=== PATIENT | female | born 1940 | race Two or more races ===

== ENCOUNTER 2018-02-22 11:05 | Emergency (ER) | payer OTHER ==
[~2018-02-22] VITALS: Ht 154.9 cm; Wt 78.0 kg
[~2018-02-22 11:05] MED LIST: AVAPRO300 MG; CRESTOR20 MG; DIS; EFFEXOR XR75 MG; GLUCOPHAGE XR750 MG; INSULIN SY; LANTUS100 U/ML; LASIX40 MG; LOTRIMIN15 GM; NEURONTIN800 MG; ORPH100T PO; PERCOCET 5/3251 TAB PO; PROTONIX40 M1; SENOKOT8.6 MG; SYNTHROID50 MCG; ZIAC 5-6.25 MG1 TAB; [UNRECOGNIZED DRUG - OTHER]
[2018-02-22] MEDS ORDERED: ATORVASTATIN CA20 MG (11:43)
[2018-02-22] MEDS ORDERED: ZIAC 5-6.25 MG1 EACH (11:44)
[2018-02-22] MEDS ORDERED: DICLOFENAC POTA50 MG PO (15:19)
== END 2018-02-22 15:41 | disposition home or self-care (01) ==
LOC: ER 11:05
DX: S20.222A Contusion of left back wall of thorax, initial encounter (principal); W06.XXXA Fall from bed, initial encounter; Y93.89 Activity, other specified; Y92.013 Bedroom of single-family (private) house as the place of occurrence of the external cause

== ENCOUNTER 2019-01-28 16:13 | Emergency (ER) | payer OTHER ==
[~2019-01-28] VITALS: Ht 154.9 cm; Wt 78.0 kg
[~2019-01-28 16:13] MED LIST changes: +ATORVASTATIN CA20 MG; +DICLOFENAC POTA50 MG PO; +ZIAC 5-6.25 MG1 EACH
== END 2019-01-28 18:48 | disposition home or self-care (01) ==
LOC: ER 16:13
DX: M75.52 Bursitis of left shoulder (principal); J06.9 Acute upper respiratory infection, unspecified

== ENCOUNTER 2019-05-06 13:22 | Emergency (ER) | payer OTHER ==
[~2019-05-06] VITALS: Ht 152.4 cm; Wt 77.1 kg
[2019-05-06] MEDS ORDERED: GABAPENTIN800 MG (13:37)
[2019-05-06] MEDS ORDERED: BISOPROLOL-HCT1 EAC1 (13:37)
[2019-05-06] MEDS ORDERED: METFORMIN HCL1000 MG (13:38)
[2019-05-06] MEDS ORDERED: ATACAND32 MG (13:39)
[2019-05-06] MEDS ORDERED: BISOPROLOL FUMAR5 MG (13:40)
[2019-05-06] MEDS ORDERED: FUROSEMIDE40 MG (13:40)
[2019-05-06] MEDS ORDERED: LANTUS SOL100 UNIT/1 (13:41)
[2019-05-06] MEDS ORDERED: SYNTHROID50 MCG (13:42)
== END 2019-05-06 18:24 | disposition home or self-care (01) ==
LOC: ER 13:22
DX: S22.42XA Multiple fractures of ribs, left side, initial encounter for closed fracture (principal); S32.592A Other specified fracture of left pubis, initial encounter for closed fracture; S00.83XA Contusion of other part of head, initial encounter; S40.022A Contusion of left upper arm, initial encounter; W18.09XA Striking against other object with subsequent fall, initial encounter; Y93.89 Activity, other specified; Y92.098 Other place in other non-institutional residence as the place of occurrence of the external cause; Y99.8 Other external cause status

== ENCOUNTER 2021-06-05 23:41 | Emergency (ER) | payer OTHER ==
[~2021-06-05] VITALS: Ht 154.9 cm; Wt 78.0 kg
[~2021-06-05 23:41] MED LIST changes: +ATACAND32 MG; +BISOPROLOL FUMAR5 MG; +BISOPROLOL-HCT1 EAC1; +FUROSEMIDE40 MG; +GABAPENTIN800 MG; +LANTUS SOL100 UNIT/1; +METFORMIN HCL1000 MG
[2021-06-06] MEDS ORDERED: DICLOFENAC SOD100 MG PO (00:55)
== END 2021-06-06 01:57 | disposition home or self-care (01) ==
LOC: ER 23:41
DX: M25.552 Pain in left hip (principal)

== ENCOUNTER 2021-07-19 12:39 | Outpatient (CLI) | payer OTHER ==
[~2021-07-19 12:39] MED LIST changes: +DICLOFENAC SOD100 MG PO
== END 2021-07-19 12:45 | disposition home or self-care (01) ==
LOC: RAD 12:39
PROVIDERS: ATTEND Orthopaedic Surgery Adult Reconstructive Orthopaedic Surgery
DX: M54.5 Low back pain (principal); M25.59 Pain in other specified joint; M16.0 Bilateral primary osteoarthritis of hip

== ENCOUNTER 2023-05-03 14:54 | Emergency (ER) | payer OTHER ==
[~2023-05-03] VITALS: Ht 149.9 cm; Wt 79.4 kg
[2023-05-03] MEDS ORDERED: PANTOPRAZOLE SO40 M2 PO (15:49)
[2023-05-03] MEDS ORDERED: ATORVASTATIN CA10 MG PO (15:50)
[2023-05-03] MEDS ORDERED: JANUVIA25 MG PO (15:52)
== END 2023-05-03 17:25 | disposition home or self-care (01) ==
LOC: ER 14:54
DX: N39.0 Urinary tract infection, site not specified (principal)